=== PATIENT | female | born 1950 | race Caucasian/White ===

== ENCOUNTER → 2017-02-04 | Outpatient (CLI) | payer MEDICARE, OTHER | END | disposition home or self-care (01) | LOC: HKI 09:41 | PROVIDERS: ATTEND Orthopaedic Surgery | DX: M25.561 Pain in right knee (principal); I10 Essential (primary) hypertension; E78.00 Pure hypercholesterolemia, unspecified; M19.90 Unspecified osteoarthritis, unspecified site; E05.00 Thyrotoxicosis with diffuse goiter without thyrotoxic crisis or storm; Z87.11 Personal history of peptic ulcer disease; Z79.82 Long term (current) use of aspirin ==

== ENCOUNTER → 2017-03-11 | Outpatient (CLI) | payer MEDICARE, OTHER ==
--- NOTE | 2017-03-12 10:58 | RADRPT ---
PROCEDURE: RIGHT knee x-ray, 4 views CLINICAL INDICATION: PAIN TECHNIQUE: AP, weightbearing AP, lateral, and sunrise views of the knee were obtained. COMPARISON: None FINDINGS: No acute fracture or dislocation is seen. There is normal mineralization. There are severe degenerative changes of the medial compartment including joint space narrowing and osteophytes. There are moderate degenerative changes of the lateral and patellofemoral compartments including joint space narrowing and osteophytes. There is no joint effusion. There is no significant soft tissue swelling. IMPRESSION: Moderate to severe degenerative changes of the medial greater than lateral and patellofemoral compar tments. RPTAT: EE Physician Rj Date Time Electronically viewed and signed by Physician Rj on 03/12/2017 08:27 /
--- NOTE | 2017-03-12 11:34 | RADRPT ---
PROCEDURE: Limited x-ray of both lower extremities. CLINICAL INDICATION: Bilateral leg pain. TECHNIQUE: Single frontal view of both lower extremities was obtained from the hips to the calves. COMPARISON: None. FINDINGS: There are severe degenerative changes of the medial compartment of the right knee including joint sp raudel narrowing and osteophytes. Narrowing and osteophytes of the lateral compartment of the right kne e are also noted. There are moderate to severe degenerative changes of the medial compartment of the left knee includi ng joint space narrowing and small osteophytes. Narrowing and osteophytes of the lateral compartmen t of the left knee are also noted. There is decreased osseous mineralization. Soft tissue structures are unremarkable. IMPRESSION: Moderate to severe degenerative changes of the right greater than left knee joint. Decreased osseous mineralization. RPTAT: QQ Physician Rj Date Time Electronically viewed and signed by Physician Rj on 03/12/2017 11:34 /
== END | disposition home or self-care (01) ==
LOC: HKI 10:17
PROVIDERS: ATTEND Orthopaedic Surgery
DX: M25.561 Pain in right knee (principal); M17.11 Unilateral primary osteoarthritis, right knee
CPT/HCPCS: 73564; 77073; G0463

== ENCOUNTER 2017-03-17 11:53 | Inpatient (IN) | payer MEDICARE, OTHER ==
[2017-03-17] VITALS (16 sets, daily range): BP systolic 100–139; BP diastolic 56–71; PULSE 62–91; RESP 14–20; Ht 162.6 cm; Wt 96.6 kg
[~2017-03-17] VITALS: Ht 162.6 cm; Wt 96.6 kg
[~2017-03-17 11:53] MED LIST: BUPIVACAINE LIPOSOME/PF 266 MG/20 ML VIAL INFIL ONE; CEFAZOLIN 2GM/50 ML (PMX) 50 ML X1 BEFORE INCISION IVPB ONE; CELECOXIB 400 MG PO X1 DOSE PO ONE; LACTATED RINGER'S 1,000 ML IV SCH; ONDANSETRON 4 MG IV X 1 DOSE IV ONE; PAIN COCKTAIL-CEFUROXIME IRR ONE; PREGABALIN 300 MG PO X1 PO ONE; SOD CHLORIDE 0.9% IV ONE; TRANEXAMIC ACID 960 MG in SOD CHLORIDE 0.9% 100 ML IVPB ONE; TRANEXAMIC ACID IV ONE; oxyCODONE (CR) 10 MG TAB [oxyCONTIN] X1 DOSE PO ONE; traMADOL 50 MG TAB X 1 DOSE PO ONE
[2017-03-17] MEDS ORDERED: POTA10TA37 PO (13:06)
[2017-03-17] MEDS ORDERED: ATOR10TA65 PO (13:06)
[2017-03-17] MEDS ORDERED: MONT10TA21 PO (13:07)
[2017-03-17] MEDS ORDERED: AMLO2.5T78 PO (13:08)
[2017-03-17] MEDS ORDERED: FLUT16SP17 NASAL (13:09)
[2017-03-17] MEDS ORDERED: LEVO125T71 PO (13:09)
[2017-03-17] MEDS ORDERED: ADV25050 INHALATION (13:11)
[2017-03-17] MEDS ORDERED: ASCO500C7 PO (13:12)
[2017-03-17] MEDS ORDERED: AZEL137S9 NASAL (13:12)
[2017-03-17] MEDS ORDERED: MULTI PO (13:12)
[2017-03-17] MEDS ORDERED: FAMO-95 PO (13:13)
[2017-03-17] MEDS ORDERED: ASPI-664 PO (13:13)
[2017-03-17] MEDS ORDERED: BIOT1CAP3 PO (13:14)
[2017-03-17] MEDS ORDERED: MAGN400T27 PO (13:15)
[2017-03-17] MEDS ORDERED: UBID100C24 PO (13:15)
[2017-03-17] MEDS ORDERED: CHOL100062 PO (13:16)
[2017-03-17] MEDS ORDERED: oxyCODONE (CR) 10 MG TAB [oxyCONTIN] X1 DOSE PO ONE (15:00)
[2017-03-17] MEDS ORDERED: PREGABALIN 300 MG PO X1 PO ONE (15:00)
[2017-03-17] MEDS ORDERED: CEFAZOLIN 2GM/50 ML (PMX) 50 ML X1 BEFORE INCISION IVPB ONE (15:00)
[2017-03-17] MEDS ORDERED: ONDANSETRON 4 MG IV X 1 DOSE IV ONE (15:00)
[2017-03-17] MEDS ORDERED: EXPAREL NOTE (BUPIVICAINE LIPOSOMAL) XX SCH (15:00)
[2017-03-17] MEDS ORDERED: traMADOL 50 MG TAB X 1 DOSE PO ONE (15:00)
[2017-03-17] MEDS ORDERED: CELECOXIB 400 MG PO X1 DOSE PO ONE (15:00)
--- NOTE | 2017-03-17 16:54 | HPN ---
Date/Time of Note Date/Time of Note DATE: 03/17/17 TIME: 16:52 Interval H&P Admission Note Pt. seen H&P reviewed: No system changes No changes from H&P on 03/04/17 by Vamsi Villanueva PA-C except WBC on 03/04/17 was 14.6 and then normalized to 9.7 on 03/10/17 AMARILYS TORO MD Mar 17, 2017 16:54
[2017-03-17] MEDS ORDERED: SODIUM CL BACTERIOSTATIC 30 ML INJ ONE (16:58)
[2017-03-17] MEDS ORDERED: POLYMYXIN B 500000 UNIT INJ ONE (16:58)
[2017-03-17] MEDS ORDERED: VANCOMYCIN 1 GM INJ ONE (16:59)
[2017-03-17] MEDS ORDERED: BACITRACIN 50000 UNITS INJ ONE (17:05)
[2017-03-17] MEDS ORDERED: PROPOFOL 100 ML ONE (17:08)
[2017-03-17] MEDS ORDERED: CEFAZOLIN 1 GM INJ ONE (17:08)
[2017-03-17] MEDS ORDERED: FENTAnyl 50 MCG/ML VIAL ONE (17:08)
[2017-03-17] MEDS ORDERED: MIDAZOLAM 1 MG/ML 2 ML INJ ONE (17:08)
[2017-03-17] MEDS ORDERED: DEXAMETHASONE 4 MG/ML 1 ML INJ ONE (17:09)
[2017-03-17] MEDS ORDERED: METOCLOPRAMIDE 10 MG INJ ONE (17:09)
[2017-03-17] MEDS ORDERED: ONDANSETRON 4 MG INJ IV PRN ×2 (19:30)
[2017-03-17] MEDS ORDERED: HYDROmorphONE 1 MG/ML SYG IV PRN (19:30)
[2017-03-17] MEDS ORDERED: HYDROCODONE/APAP (7.5/325) TAB PO PRN (19:30)
[2017-03-17] MEDS ORDERED: HYDROmorphONE (0.2 MG/ML) 10ML SYG IV PRN ×3 (19:30)
[2017-03-17] MEDS ORDERED: MAGNESIUM HYDROXIDE 30ML CUP PO PRN (19:30)
[2017-03-17] MEDS ORDERED: NACL 0.9% 3 ML SYG IV SCH (19:30)
[2017-03-17] MEDS ORDERED: MEPERIDINE 25 MG INJ IV PRN (19:30)
[2017-03-17] MEDS ORDERED: BISACODYL 10 MG SUPP PR PRN (19:30)
[2017-03-17] MEDS ORDERED: NA PHOSPHATE/BIPHOS 133 ML ENEMA PR PRN (19:30)
[2017-03-17] MEDS ORDERED: ASPIRIN (EC) 325 MG TAB PO ONE (19:30)
[2017-03-17] MEDS ORDERED: DIPHENHYDRAMINE 25 MG CAP PO PRN (19:30)
[2017-03-17] MEDS ORDERED: METOCLOPRAMIDE 10 MG INJ IV PRN (19:30)
[2017-03-17] MEDS ORDERED: DIPHENHYDRAMINE 50 MG INJ IV PRN (19:30)
--- NOTE | 2017-03-17 19:30 | OPR ---
Date/Time of Note Date/Time of Note DATE: 03/17/17 TIME: 19:27 Operative Report Procedure Description DATE: 03/17/2017 PREOPERATIVE DIAGNOSIS: Right knee osteoarthritis POSTOPERATIVE DIAGNOSIS: Right knee osteoarthritis OPERATION PERFORMED: Right total knee arthroplasty. SURGEON: Amarilys Toro MD KENNEL HAND: Eliecer Blackwell PA-C COMPONENTS USED: DePuy Attune size 4 cruciate retaining femoral component, size 3 tibial baseplate, 6 mm polyethylene insert, 32 patellar button ANESTHESIA: Spinal plus general endotracheal intubation, plus periarticular injection ANESTHESIOLOGIST: Candace Nolasco M.D. TOURNIQUET TIME: 51 minutes. ESTIMATED BLOOD LOSS: 50 cc INTRAVENOUS FLUIDS: 2,000 cc SPECIMENS: Bone and soft tissue. DRAINS: Hemovac x1. COMPLICATIONS: None. DISPOSITION: The patient tolerated the procedure well and was taken to the recovery room in stable condition. INDICATIONS: The patient is a 66-year-old woman who has had progressively worsening pain in the right knee with radiographic evidence of severe osteoarthritis. She has failed nonsurgical means of treatment to address her pain including activity modifications pain medications intra-articular injections and ambulatory assist devices. Despite these measures she has had worsening pain and I feel she will benefit from a total knee arthroplasty. The risks, benefits, and alternatives of the procedure were explained in detail to the patient. I explained the risks of the surgery to include but not be limited to, bleeding and possible need for blood transfusion; infection; pain; stiffness; neurovascular injury with possible numbness, weakness, and/or paralysis anywhere from the knee down to the toes; fracture; instability; dislocation; wear and/or loosening of the prosthesis and possible need for future revision; blood clots; pulmonary embolism; and anesthetic complications such as heart attack, stroke, GI bleed, pneumonia, and/or . Ample time was allowed for the patient to ask questions, all of which were addressed and answered. The patient understood the risks involved and wished to proceed. Informed consent was signed prior to the procedure. PROCEDURE: The patient's right knee was initialed with a marking pen in the preoperative area to identify the correct operative site. The patient was brought to the operating room and transferred from the [facility] to the operating table where a spinal anesthetic was administered. The patient was then anesthetized and intubated. A Simon catheter was placed. A timeout was performed to confirm that the right leg was the correct operative site. The patient was given 2 g of Ancef within one hour prior to the procedure. A tourniquet was placed on the operative proximal thigh. The operative knee and lower extremity were prepped and draped in the usual sterile fashion. The operative lower extremity was elevated and exsanguinated with an Esmarch tourniquet. The proximal thigh tourniquet was inflated to 300 mmHg. The knee was flexed. A midline incision was made and carried down through the subcutaneous tissue and fat with sharp dissection. Limited medial and lateral flaps were raised. A medial parapatellar approach was performed. Synovial fluid was normal in color and consistency. The patella was everted and the knee flexed. There were severe tricompartmental osteoarthritic changes noted. A medial release was performed at the joint line to the midcoronal plane. The ACL and remnants of the menisci were excised. The PCL was intact. The stepped drill was used to open up the femoral canal which was irrigated and sucked dry. The intramedullary guide viviane was passed up the femur, and the distal cutting block was pinned into place for a 6 degree valgus cut, taking 10 mm of bone off distally. The oscillating saw was used to make the cut. The tibia was subluxed anteriorly. The tibial cutoff jig was placed over the center of the talus distally and over the junction of the medial and middle third of the tibial tubercle proximally. The guide was pinned into place and the oscillating saw was used to make the cut. The tibia was sized. The extension gap was checked and accommodated a 6 mm spacer block with the knee in full extension. There was no varus or valgus instability. At this point, the femur was sized with the posterior referencing guide. Two holes were drilled in 3 degrees of external rotation. The two holes were in line with the transepicondylar axis, perpendicular to Hyde's line, and in line with the tibial cutoff jig brought up with the knee flexed 90 degrees and tensed with 2 lamina spreaders, suggesting the femoral rotation was correct. The four-in-one cutting block was pinned into place. The anterior and posterior cuts and chamfer cuts were made with the oscillating saw. The flexion gap was checked and accommodated the 6 mm spacer block at 90 degrees. There was no varus or valgus instability, suggesting the flexion and extension gaps were now equal. The central sulcus was cut out on the femur. The tibia was drilled and punched in proper rotation. Trial components were placed into position with a trial insert. The patella was cut down to 13 mm and sized. Three holes were drilled and the trial button placed in position. With all the trials now in place, the knee was taken through range of motion and came to full extension as evidenced by the fact that with the foot on my abdomen and axial loading, there was no tendency for the knee to flex. The knee was able to be flexed to 125 degrees with good patellar tracking with no lateral tilt or subluxation. At this point, I was satisfied with the overall range of motion, stability, and patellar tracking. The trials were removed. The real components were opened. Two bags of cement were mixed, one with and one without premixed antibiotic. The knee was irrigated with antibiotic saline and sucked dry. Once the cement was in a doughy stage, the real components were cemented into place. The knee was held in full extension, and the patellar component was held with a patellar clamp. All excess cement was removed with curettes. As the cement was hardening, the synovial/capsular layer was infiltrated with a mixture of 150 mg of 0.5% Bupivacaine, 8 mg of Duramorph, 300 mcg of epinephrine, 30 mg of Toradol, 100 mcg of clonidine, 750 mg of cefuroxime and 86 mL of normal saline, followed by an injection of 266 mg of liposomal Bupivacaine. A Hemovac drain was placed in the deep portion of the wound and brought out the anterolateral thigh. Once the cement was completely hardened, the trial liner was removed, and the real insert was opened. The tourniquet was let down, and there was good hemostasis. The knee was then irrigated with a mixture of betadine/saline and then antibiotic saline with pulsatile lavage. The real insert was impacted into the tibia and reduced onto to the femur. The arthrotomy was closed with a few interrupted #1 Ethibond in a figure-of- eight fashion, and then closed in a watertight fashion with a running #2 Stratafix suture. Knee flexion was checked against gravity and came to 125 degrees. The subcutaneous layer was irrigated and closed with 2-0 Statafix, and then 3-0 Vicryl and then shaka on the skin. The wound was covered with an occlusive dressing, and secured with cast padding and a bias dressing. The drain was secured with 3-0 nylon. The sponge and needle counts were correct at the end of the case. The patient was then awakened, extubated, and taken to the recovery room in stable condition. AMARILYS TORO MD Mar 17, 2017 19:30
--- NOTE | 2017-03-17 19:32 | PN ---
Date/Time of Note Date/Time of Note DATE: 03/17/17 TIME: 19:30 Assessment/Plan Lines/Catheters IV Catheter Type (from Nrsg): Peripheral IV Assessment/Plan Assessment/Plan Stable in PACU, s/p right TKA -continue Ancef until drains removed -pain meds as needed -ASA/SCDs -OOB with PT -check AM labs -monitor drain -d/c thornton in AM XR of the right knee is pending at this time Subjective 24 Hr Interval Summary Stable in PACU. Drowsy from anesthesia. Denies pain. Moving all extremities. Exam/Review of Systems Vital Signs Vitals Vital Signs Date Time Temp Pulse Resp B/P Pulse Ox O2 Delivery O2 Flow Rate FiO2 03/17/17 19:21 98.4 03/17/17 14:35 91 18 139/71 95 Exam Free Text/Dictation Hemovac: minimal Dressing dry Incision clean, dry, and intact without redness or drainage Thigh soft 5/5 Quadriceps, Tibialis Anterior, EHL, Gastroc, Soleus, Peroneals Normal sensation Palpable DT/PT, CR <2 sec No distal edema WHITLEY CHERY PA-C Mar 17, 2017 19:31
[2017-03-17 19:50] LABS: HEMATOCRIT 39.1 % (37.0-47.0); HEMOGLOBIN 12.7 g/dl (12.0-16.0)
[2017-03-17] MEDS: CEFAZOLIN 2 GM/50 ML (PMX) 50 ML IVPB SCH (20:06)
[2017-03-17 20:11] LABS: CALCIUM 8.9 mg/dl (8.4-10.2); CREATININE 0.9 mg/dl (0.44-1.00); POTASSIUM 4.3 mmol/L (3.5-5.1)
[2017-03-17] MEDS: ATORVASTATIN 10 MG TAB PO SCH (21:24)
[2017-03-17] MEDS: MONTELUKAST 10 MG TAB PO SCH (21:24)
[2017-03-17] MEDS: PREGABALIN 50 MG CAP PO SCH (21:24)
[2017-03-17] MEDS: DOCUSATE SODIUM 100 MG CAP PO SCH (21:24)
[2017-03-17] MEDS: FAMOTIDINE 20 MG TAB PO SCH (21:24)
[2017-03-17] MEDS: LACTATED RINGER'S 1,000 ML IV SCH (21:27)
[2017-03-17] MEDS ORDERED: SOD CHLORIDE 0.9% IVPB ONE (22:30)
[2017-03-17] MEDS ORDERED: TRANEXAMIC ACID IVPB ONE (22:30)
--- NOTE | 2017-03-17 22:32 | RADRPT ---
PROCEDURE: XR Knee. CLINICAL INDICATION: 66 years of age, female. Postop. TECHNIQUE: 2 views of the left knee. COMPARISON: March 11, 2017 FINDINGS: In the interval there has been a cemented right total knee replacement that has the expected immedia te postoperative appearance. There is a a surgical drain in the anterior joint. There are anterior skin shaka. Soft tissue swelling and soft tissue gas are in keeping with recent surgery. IMPRESSION: Status post right total knee replacement with the expected immediate postoperative appearance. RPTAT: HCTS Physician Maximo Date Time Electronically viewed and signed by Physician Mxaimo on 03/17/2017 22:32 CS/
[2017-03-18] MEDS: traMADol 50 MG TAB PO SCH ×4 (00:44→18:16)
[2017-03-18] MEDS ORDERED: TRANEXAMIC ACID IVPB ONE (01:30)
[2017-03-18] MEDS ORDERED: SOD CHLORIDE 0.9% IVPB ONE (01:30)
[2017-03-18] MEDS ORDERED: CEFAZOLIN 2 GM/50 ML (PMX) 50 ML IVPB SCH (02:00)
[2017-03-18] MEDS: LACTATED RINGER'S 1,000 ML IV SCH ×5 (03:24→19:24)
[2017-03-18] MEDS: LEVOTHYROXINE 125 MCG TAB PO SCH (05:07)
[2017-03-18] MEDS: PANTOPRAZOLE (EC) 40 MG TAB PO SCH ×2 (05:07→18:16)
[2017-03-18] MEDS: CEFAZOLIN 2 GM/50 ML (PMX) 50 ML IVPB SCH ×2 (05:07→12:21)
[2017-03-18 05:25] LABS: HEMATOCRIT 39.3 % (37.0-47.0); HEMOGLOBIN 12.7 g/dl (12.0-16.0)
[2017-03-18 06:26] LABS: ADD UMIC YES; UR ASCORBIC ACID 40 mg/dL (NEGATIVE); UR BILIRUBIN (Dip) NEGATIVE (NEGATIVE); UR BLOOD (Dip) 1+ mg/dL (NEGATIVE); UR CLARITY CLEAR (CLEAR); UR COLOR YELLOW (YELLOW); UR GLUCOSE (Dip) NEGATIVE (NEGATIVE); UR KETONES (Dip) TRACE mg/dL (NEGATIVE); UR LEUKOCYTE ESTERASE (Dip) 1+ Leu/ul (NEGATIVE); UR NITRITE (Dip) NEGATIVE (NEGATIVE); UR RBC 56 /HPF (0-5); UR SPECIFIC GRAVITY (Dip) 1.019 (1.003-1.030); UR TOTAL PROTEIN (Dip) NEGATIVE (NEGATIVE); UR UROBILINOGEN (Dip) NEGATIVE (NEGATIVE)
[2017-03-18 06:42] LABS: CALCIUM 8.5 mg/dl (8.4-10.2); CREATININE 0.84 mg/dl (0.44-1.00); POTASSIUM 4.2 mmol/L (3.5-5.1)
[2017-03-18 07:00] VITALS: BP 118/56; RESP 18
--- NOTE | 2017-03-18 07:30 | PDOCDIS ---
Discharge Instructions DIAGNOSIS Discharge Diagnosis s/p right TKA CONDITION Patient Condition: Good HOME CARE INSTRUCTIONS: Diet Instructions: Regular ACTIVITY: Activity Restrictions: Slowly Increase Activity Rest between Activity Avoid heavy lifting Do not operate Machinery Do not operate Power Tool Avoid Heavy Housework Keep Limb Elevated Weight Bearing Bathing Restrictions: Shower FOLLOW UP/APPOINTMENTS Follow-up Plan follow up in the office on 03/27/17 OTHER ORDERS: Other Orders: S/P TKA Physical Therapy: Three times per week at home x 2 weeks Daily in Rehab/SNF WB STATUS: WBAT 1. Strengthening exercises for both upper and un-operated lower extremities. 2. Gait training with front wheeled walker 3. Active range of motion exercises to operative knee. 4. When not working on knee range of motion exercises, distal towel roll under operative ankle/distal calf to promote full extension. 5. DO NOT PUT ANYTHING BEHIND OPERATIVE KNEE!!! 6. Quadriceps and hamstring strengthening. 7. May switch to cane in contra lateral hand 6 weeks after surgery. 8. Physical Therapy can open case if nursing is not available. 9. Use Ice Machine as instructed from date of surgery while at rest 3X/day. 10. Patient requires mobile SCDs to reduce risk of developing DVT following TKA. Patient will use the mobile SCDs for 30 days postoperatively. Bathing assistance by home health aide twice weekly if Medicare patient. Occupational Therapy: Evaluation for assistive devices and ADL training. Wound Care: Keep incision dry & covered with Tegaderm until first visit with Dr. Cabral Anticoagulation Orders: Enteric Coated Aspirin 325 mg po bid x 6 weeks from date of surgery Follow-up:Call for an appointment with Dr. Cabral in 1 week after discharged from hospital at DME Orders: FWW, 3-in-1 Commode, Polar ice machine, Mobile SCDs WHITLEY CHERY PA-C Mar 18, 2017 07:30
[2017-03-18] MEDS ORDERED: TRAM50TA2 PO (07:31)
[2017-03-18] MEDS ORDERED: PANT40TA4 PO (07:31)
[2017-03-18] MEDS ORDERED: HYDR-3605 PO (07:31)
[2017-03-18] MEDS ORDERED: PREG50CA PO (07:31)
[2017-03-18] MEDS ORDERED: ASPI325T32 PO (07:31)
--- NOTE | 2017-03-18 08:51 | PN ---
Date/Time of Note Date/Time of Note DATE: 03/18/17 TIME: 08:50 Assessment/Plan Lines/Catheters IV Catheter Type (from Nrsg): Peripheral IV Simon in Place (from Nrsg): Yes Assessment/Plan Assessment/Plan Stable POD #1, s/p right TKA -d/c Ancef -pain meds as needed -ASA/SCDs -OOB with PT -drain removed -check AM labs -d/c planning for home Subjective 24 Hr Interval Summary No acute overnight events. Denies significant pain. Did not start therapy yet. VSS, afebrile. Would like to go home upon discharge. Exam/Review of Systems Vital Signs Vitals Vital Signs Date Time Temp Pulse Resp B/P Pulse Ox O2 Delivery O2 Flow Rate FiO2 03/18/17 07:00 97.4 57 18 118/56 97 03/17/17 23:00 Nasal Cannula 03/17/17 19:41 8.0 Intake and Output 03/17/17 03/17/17 03/18/17 15:00 23:00 07:00 Intake Total 2000 ml 1269.4 ml Output Total 280 ml 100 ml Balance 1720 ml 1169.4 ml Exam Free Text/Dictation Hemovac: 130cc Dressing dry Incision clean, dry, and intact without redness or drainage Thigh soft 5/5 Quadriceps, Tibialis Anterior, EHL, Gastroc, Soleus, Peroneals Normal sensation Palpable DT/PT, CR <2 sec No distal edema Results Result Diagram: 03/18/17 0428 03/18/17 0428 WHITLEY CHERY PA-C Mar 18, 2017 08:51
[2017-03-18] MEDS: DOCUSATE SODIUM 100 MG CAP PO SCH ×2 (09:06→20:45)
[2017-03-18] MEDS: ASPIRIN (EC) 325 MG TAB PO SCH ×2 (09:07→20:45)
[2017-03-18] MEDS: ASCORBIC ACID 500 MG TAB PO SCH (09:07)
[2017-03-18] MEDS: HYDROCODONE/APAP (7.5/325) TAB PO PRN ×2 (09:15→20:56)
[2017-03-18] MEDS: PREGABALIN 50 MG CAP PO SCH ×2 (09:15→20:45)
[2017-03-18 14:00] VITALS: BP 118/67; RESP 18
[2017-03-18 20:20] VITALS: BP 143/70; RESP 20
[2017-03-18] MEDS: FAMOTIDINE 20 MG TAB PO SCH (20:45)
[2017-03-18] MEDS: ATORVASTATIN 10 MG TAB PO SCH (20:45)
[2017-03-18] MEDS: MONTELUKAST 10 MG TAB PO SCH (20:46)
[2017-03-19] MEDS: HYDROCODONE/APAP (7.5/325) TAB PO PRN (01:46)
[2017-03-19] MEDS: LACTATED RINGER'S 1,000 ML IV SCH ×3 (01:48→19:24)
[2017-03-19 02:00] VITALS: BP 137/73; RESP 18
[2017-03-19] MEDS: LEVOTHYROXINE 125 MCG TAB PO SCH (05:09)
[2017-03-19] MEDS: PANTOPRAZOLE (EC) 40 MG TAB PO SCH ×2 (05:09→18:07)
[2017-03-19] MEDS: traMADol 50 MG TAB PO SCH ×5 (05:10→23:48)
[2017-03-19 05:29] LABS: HEMATOCRIT 35.4 % (37.0-47.0); HEMOGLOBIN 11.3 g/dl (12.0-16.0)
[2017-03-19 06:05] LABS: CALCIUM 8.5 mg/dl (8.4-10.2); CREATININE 0.89 mg/dl (0.44-1.00); POTASSIUM 4.2 mmol/L (3.5-5.1)
[2017-03-19 07:34] VITALS: BP 113/59; RESP 19
[2017-03-19] MEDS: ASCORBIC ACID 500 MG TAB PO SCH (09:06)
[2017-03-19] MEDS: DOCUSATE SODIUM 100 MG CAP PO SCH ×2 (09:06→20:48)
[2017-03-19] MEDS: PREGABALIN 50 MG CAP PO SCH ×2 (09:06→20:48)
[2017-03-19] MEDS: ASPIRIN (EC) 325 MG TAB PO SCH ×2 (09:06→20:48)
[2017-03-19] MEDS: ACETAMINOPHEN 325 MG TAB PO PRN ×2 (12:20→19:57)
[2017-03-19 14:30] VITALS: BP 118/63; RESP 18
--- NOTE | 2017-03-19 14:37 | PN ---
Date/Time of Note Date/Time of Note DATE: 03/18/17 TIME: 15:35 A 66 yaer female s/p riht knee replacement POD #1 is doing fine. no Pain, N/V, itching, headache, bCK PAIN. CARE PER SURGERY Assessment/Plan VTE Prophylaxis VTE Prophylaxis Intervention: ambulation Lines/Catheters IV Catheter Type (from Nrs): Saline Lock Urinary Cath still in place: Yes Exam/Review of Systems Vital Signs Vitals Vital Signs Date Time Temp Pulse Resp B/P Pulse Ox O2 Delivery O2 Flow Rate FiO2 03/19/17 07:34 97.9 73 19 113/59 95 03/18/17 09:00 Nasal Cannula 03/17/17 19:41 8.0 Intake and Output 03/18/17 03/18/17 03/19/17 15:00 23:00 07:00 Intake Total 50 ml 2660 ml 1975 ml Output Total 1500 ml 1400 ml Balance 50 ml 1160 ml 575 ml Results Result Diagram: 03/19/17 0433 03/19/17 0433 Results 24 hrs Laboratory Tests Test 03/19/17 04:33 Hemoglobin 11.3 L Hematocrit 35.4 L Sodium Level 138 Potassium Level 4.2 Chloride Level 106 Carbon Dioxide Level 26 Anion Gap 10 Blood Urea Nitrogen 21 H Creatinine 0.89 Glucose Level 96 # Calcium Level 8.5 Medications Medications Current Medications Miscellaneous Information 1 ea NOTE XX ; Start 03/17/17 at 15:00; Stop 03/21/17 at 14:59 Ascorbic Acid (Vitamin C) 500 mg DAILY PO Last administered on 03/19/17 09:06 ; Admin Dose 500 MG; Start 03/18/17 at 09:00 Atorvastatin Calcium (Lipitor) 10 mg QHS PO Last administered on 03/18/17 20: 45; Admin Dose 10 MG; Start 03/17/17 at 21:00 Famotidine (Pepcid) 20 mg QPM PO Last administered on 03/18/17 20:45; Admin Dose 20 MG; Start 03/17/17 at 21:00 Levothyroxine Sodium (Synthroid) 125 mcg DAILY@06 PO Last administered on 05:09; Admin Dose 125 MCG; Start 03/18/17 at 06:00 Montelukast Sodium 10 mg 10 mg QHS PO Last administered on 03/18/17 20:46; Admin Dose 10 MG; Start 03/17/17 at 21:00 Lactated Ringer's (Lr) 1,000 ml @ 125 mls/hr Q8H IV Last administered on 01:48; Admin Dose 125 MLS/HR; Start 03/17/17 at 19:24 Tramadol HCl (Ultram) 50 mg Q6 PO Last administered on 03/19/17 05:10; Admin Dose 50 MG; Start 03/17/17 at 20:00; Stop 03/20/17 at 19:59 Hydromorphone HCl (Dilaudid) 1 mg Q3H PRN IV PAIN LEVEL 8-10; Start 03/17/17 at 19:30 Ondansetron HCl (Zofran Inj) 4 mg Q6H PRN IV NAUSEA AND/OR VOMITING; Start at 19:30 Bisacodyl (Dulcolax Supp) 10 mg Q12H PRN [place] CONSTIPATION; Start 03/17/17 at 19: 30 Magnesium Hydroxide (Milk Of Mag) 30 ml BID PRN PO CONSTIPATION; Start at 19:30 Sodium Biphosphate/ Sodium Phosphate (Fleet Enema) 133 ml DAILY PRN [place] CONSTIPATION; Start 03/17/17 at 19:30 Docusate Sodium (Colace) 100 mg BID PO Last administered on 03/19/17 09:06; Admin Dose 100 MG; Start 03/17/17 at 21:00 Diphenhydramine HCl (Benadryl) 25 mg Q6H PRN PO PRURITUS; Start 03/17/17 at 19: 30 Acetaminophen/ Hydrocodone Bitart ([place] (7.5-325)) 1 tab Q4H PRN PO PAIN LEVEL 1-3 Last administered on 03/19/17 01:46; Admin Dose 1 TAB; Start at 19:30 Acetaminophen/ Hydrocodone Bitart ([place] (7.5-325)) 2 tab Q4H PRN PO PAIN LEVEL 4-7; Start 03/17/17 at 19:30 Aspirin (Ecotrin) 325 mg BID PO Last administered on 03/19/17 09:06; Admin Dose 325 MG; Start 03/18/17 at 09:00 Pantoprazole (Protonix Tab) 40 mg BID@06,18 PO Last administered on 03/19/17 05:09; Admin Dose 40 MG; Start 03/18/17 at 06:00 Pregabalin (Lyrica) 50 mg BID PO Last administered on 03/19/17 09:06; Admin Dose 50 MG; Start 03/17/17 at 21:00 Acetaminophen (Tylenol Tab) 650 mg Q6H PRN PO PAIN AND OR ELEVATED TEMP Last administered on 03/19/17 12:20; Admin Dose 650 MG; Start 03/19/17 at 11:00 JEFF HUIZAR MD Mar 19, 2017 14:37
--- NOTE | 2017-03-19 16:20 | PN ---
Date/Time of Note Date/Time of Note DATE: 03/19/17 TIME: 16:19 Assessment/Plan Lines/Catheters IV Catheter Type (from Nrsg): Saline Lock Simon in Place (from Nrsg): Yes Assessment/Plan Assessment/Plan Stable, POD #2, s/p right TKA -pain meds (hold off on norco) -ASA/SCDs -OOB with PT -dressing changed -check AM labs -plan to discharge home tomorrow Subjective 24 Hr Interval Summary No acute overnight events. Denies pain. Feeling drowsy from the norco. VSS, afebrile. Will plan to go home tomorrow. Exam/Review of Systems Vital Signs Vitals Vital Signs Date Time Temp Pulse Resp B/P Pulse Ox O2 Delivery O2 Flow Rate FiO2 03/19/17 14:30 97.7 76 18 118/63 98 03/18/17 09:00 Nasal Cannula 03/17/17 19:41 8.0 Intake and Output 03/18/17 03/18/17 03/19/17 15:00 23:00 07:00 Intake Total 50 ml 2660 ml 1975 ml Output Total 1500 ml 1400 ml Balance 50 ml 1160 ml 575 ml Exam Free Text/Dictation Dressing dry Incision clean, dry, and intact without redness or drainage Thigh soft 5/5 Quadriceps, Tibialis Anterior, EHL, Gastroc, Soleus, Peroneals Normal sensation Palpable DT/PT, CR <2 sec No distal edema Results Result Diagram: 03/19/17 0433 03/19/17 0433 WHITLEY CHERY PA-C Mar 19, 2017 16:20
[2017-03-19] MEDS: ATORVASTATIN 10 MG TAB PO SCH (20:48)
[2017-03-19] MEDS: FAMOTIDINE 20 MG TAB PO SCH (20:48)
[2017-03-19] MEDS: MONTELUKAST 10 MG TAB PO SCH (20:48)
[2017-03-19 21:14] VITALS: BP 123/70; RESP 20
[2017-03-19 21:32] VITALS: BP 123/59; RESP 18
[2017-03-20] MEDS: traMADol 50 MG TAB PO SCH ×3 (01:37→11:09)
[2017-03-20 02:43] VITALS: BP 125/62; RESP 18
[2017-03-20] MEDS: LACTATED RINGER'S 1,000 ML IV SCH (03:24)
[2017-03-20 06:00] LABS: HEMATOCRIT 39.8 % (37.0-47.0); HEMOGLOBIN 12.6 g/dl (12.0-16.0)
[2017-03-20] MEDS: LEVOTHYROXINE 125 MCG TAB PO SCH (06:08)
[2017-03-20] MEDS: PANTOPRAZOLE (EC) 40 MG TAB PO SCH (06:08)
[2017-03-20 06:34] LABS: CALCIUM 8.5 mg/dl (8.4-10.2); CREATININE 0.92 mg/dl (0.44-1.00); POTASSIUM 4.4 mmol/L (3.5-5.1)
[2017-03-20 08:33] VITALS: BP 162/74; RESP 18
[2017-03-20] MEDS: ACETAMINOPHEN 325 MG TAB PO PRN (09:01)
[2017-03-20] MEDS: DOCUSATE SODIUM 100 MG CAP PO SCH (09:01)
[2017-03-20] MEDS: ASPIRIN (EC) 325 MG TAB PO SCH (09:01)
[2017-03-20] MEDS: ASCORBIC ACID 500 MG TAB PO SCH (09:01)
[2017-03-20] MEDS: PREGABALIN 50 MG CAP PO SCH (09:01)
--- NOTE | 2017-03-20 09:23 | PN ---
Date/Time of Note Date/Time of Note DATE: 03/20/17 TIME: 09:22 Assessment/Plan Lines/Catheters IV Catheter Type (from Nrsg): Saline Lock Simon in Place (from Nrsg): Yes Assessment/Plan Assessment/Plan Stable, POD #3, s/p right TKA -pain meds as needed -ASA/SCDs -dressing changed -OOB with PT -d/c home today -follow up in the office in 1 week Subjective 24 Hr Interval Summary No acute overnight events. Feeling better overall. Progressing with PT. VSS, afebrile. Will plan to go home today. Exam/Review of Systems Vital Signs Vitals Vital Signs Date Time Temp Pulse Resp B/P Pulse Ox O2 Delivery O2 Flow Rate FiO2 03/20/17 08:33 98.1 90 18 162/74 98 03/18/17 09:00 Nasal Cannula 03/17/17 19:41 8.0 Intake and Output 03/19/17 03/19/17 03/20/17 14:59 22:59 06:59 Intake Total 625 ml 1140 ml 500 ml Output Total 1150 ml Balance 625 ml -10 ml 500 ml Exam Free Text/Dictation Dressing dry Incision clean, dry, and intact without redness or drainage Thigh soft 5/5 Quadriceps, Tibialis Anterior, EHL, Gastroc, Soleus, Peroneals Normal sensation Palpable DT/PT, CR <2 sec No distal edema Results Result Diagram: 03/20/17 0453 03/20/17 0455 WHITLEY CHERY PA-C Mar 20, 2017 09:23
--- NOTE | 2017-03-20 14:42 | DS ---
Date/Time of Note Date/Time of Note DATE: 03/20/17 TIME: 14:39 Discharge Summary Admission/Discharge Info Admit Date/Time Mar 17, 2017 at 12:17 Discharge Date/Time Mar 20, 2017 at 11:25 Discharge Diagnosis Status post right total knee arthroplasty Patient Condition: Good Procedures Right total knee arthroplasty Hospital Course This is a 66-year-old female, who was seen in the clinic initially complaining of right knee pain. X-rays demonstrated advanced osteoarthritis of the right knee, and it was thought she would benefit from right total knee arthroplasty. On 03/17/2017 the patient was admitted and taken to the operating room, where she underwent a right total knee arthroplasty. There were no intraoperative complications. The patient tolerated the procedure well. She was taken to recovery room in stable condition. Pain was well-controlled oral pain medication. She was started on aspirin and SCDs for DVT prophylaxis. She remained hemodynamically stable and neurovascularly intact throughout her hospital stay. She began physical therapy on postoperative day 1, and continues to make a progress. She was deemed stable for discharge home on postoperative day 3. Prior to discharge, the incision was inspected and noted to be clean, dry, and intact. Dressing changes were done prior to the patient going home. Discharge instructions: The patient will be discharged home in stable condition. She is to resume a normal diet. She is weightbearing as tolerated on the right lower extremity. She will begin physical therapy with home health. She will be discharged home with a medication noted, and is to resume all of her normal home medication. The patient is to call the office or go to emergency room for any concerns including increased redness, swelling, drainage , fever, or any concerns regarding the operation or site of incision. Home Meds Active Scripts Pantoprazole* (Pantoprazole*) 40 Mg Tablet.dr, 40 MG PO DAILY for 40 Days, #40 Prov:WHITLEY CHERY PA-C 03/18/17 Tramadol HCl (Tramadol HCl) 50 Mg Tablet, 50 MG PO Q6 for 30 Days, #60 TAB Prov:WHITLEY CHERY PA-C 03/18/17 Hydrocodone/Acetaminophen (Hydrocodon-Acetaminoph 7.5-325) 1 Each Tablet, 2 TAB PO Q4H Y for PAIN LEVEL 4-7 for 30 Days, #60 TAB Prov:WHITLEY CHERY PA-C 03/18/17 Pregabalin* (Lyrica*) 50 Mg Capsule, 50 MG PO BID for 30 Days, #60 CAP Prov:WHITLEY CHERY PA-C 03/18/17 Aspirin (Aspir-Madeleine) 325 Mg Tablet.dr, 325 MG PO BID for 40 Days, #80 Prov:WHITLEY CHERY PA-C 03/18/17 Reported Medications Cholecalciferol* (Vitamin D3*) 1,000 Unit Tablet, 1000 UNIT PO DAILY, TAB 03/17/17 Ubidecarenone (Coq-10) 100 Mg Capsule, 100 MG PO, CAP 03/17/17 Magnesium Oxide* (Mag-Oxide*) 400 Mg Tablet, 400 MG PO DAILY, TAB 03/17/17 Biotin (BIOTIN) 1 Mg Capsule, 1 MG PO, CAP 03/17/17 Famotidine* (Pepcid* AC) 20 Mg Tablet, 20 MG PO QPM, #30 TAB 03/17/17 Ascorbic Acid* (Vitamin C*) 500 Mg Capsule.sa, 500 MG PO DAILY, CAP 03/17/17 Multivitamins* (Theragran*) 1 Tab Tab, 1 TAB PO DAILY, TAB 03/17/17 Azelastine Hcl* (Azelastine Hcl*) 137 Mcg/0.137 Ml [place].pump, 2 SPRAYS NASAL QPM, #1 EA TO EACH NOSTRIL 03/17/17 Salmeterol Xinaf/Fluticasone* (Advair*) 250-50 Diskus Inhaler, 1 INH INHALATION BID, #1 INHALER 03/17/17 Fluticasone Propionate* (Fluticasone Propionate* Nasal) 50 Mcg/[place] - 16 Gm [place].susp, 2 SPRAYS NASAL QAM, #1 BOTTLE TO EACH NOSTRIL 03/17/17 Levothyroxine Sodium* (Levoxyl*) 125 Mcg Tablet, 125 MCG PO BEFORE BREAKFAST, # 30 TAB 03/17/17 Amlodipine Besylate* (Amlodipine Besylate*) 2.5 Mg Tablet, 2.5 MG PO, #30 TAB 03/17/17 Montelukast Sodium* (Singulair*) 10 Mg Tablet, 10 MG PO QHS, #30 TAB 03/17/17 Atorvastatin Calcium (Atorvastatin Calcium) 10 Mg Tablet, 10 MG PO QHS, #30 TAB 03/17/17 Potassium Chloride* (K-Dur*) 10 Meq Tab.prt.sr, 20 MEQ PO QPM, TAB 03/17/17 Discontinued Reported Medications Aspirin (Low Dose Aspirin) 81 Mg Tablet.dr, 81 MG PO DAILY, #30 TAB 03/17/17 Follow-up Plan Follow-up in the office on 03/27/2017 Primary Care Provider Not On Staff Doctor Pending Labs Laboratory Tests Test 03/20/17 04:53 03/20/17 04:55 Hemoglobin 12.6g/dl (12.0-16.0) Hematocrit 39.8% (37.0-47.0) Sodium Level 143mmol/L (135-144) Potassium Level 4.4mmol/L (3.5-5.1) Chloride Level 104mmol/L (97-110) Carbon Dioxide Level 26mmol/L (21-31) Anion Gap 17 (8-16) Blood Urea Nitrogen 22mg/dl (7-20) Creatinine 0.92mg/dl (0.44-1.00) Glucose Level 96mg/dl (70-220) Calcium Level 8.5mg/dl (8.4-10.2) WHITLEY CHERY PA-C Mar 20, 2017 14:42
== END 2017-03-20 11:25 | disposition home health service (06) | DRG 470 ==
LOC: REC 12:17 → MS1 20:45
PROVIDERS: ADMIT Orthopaedic Surgery; ATTEND Orthopaedic Surgery
PROC: 0SRC0J9 Replacement of Right Knee Joint with Synthetic Substitute, Cemented, Open Approach (ICD-10-PCS; principal; 2017-03-17 16:30)
DX: M17.11 Unilateral primary osteoarthritis, right knee (principal); E66.01 Morbid (severe) obesity due to excess calories; N18.3 Chronic kidney disease, stage 3 (moderate); I10 Essential (primary) hypertension; E03.9 Hypothyroidism, unspecified; Z68.36 Body mass index [BMI] 36.0-36.9, adult; E78.5 Hyperlipidemia, unspecified; I12.9 Hypertensive chronic kidney disease with stage 1 through stage 4 chronic kidney disease, or unspecified chronic kidney disease; J45.909 Unspecified asthma, uncomplicated; M47.817 Spondylosis without myelopathy or radiculopathy, lumbosacral region; Z79.82 Long term (current) use of aspirin
CPT/HCPCS: 73560; 80048; 81001; 85014; 85018; 86850; 86900; 86901; 86920; 87081; 87086; 88304; 88311; 97110; 97116; 97163; 97166; 97530; C1776; C9290; J0171; J0690; J0697; J0735; J1100; J1885; J2250; J2274; J2405; J2765; J3010; J3370; J7120

== ENCOUNTER → 2017-03-27 | Outpatient (CLI) | payer MEDICARE, OTHER ==
[~2017-03-27] MED LIST changes: +ADV25050 INHALATION; +AMLO2.5T78 PO; +ASCO500C7 PO; +ASPI325T32 PO; +ATOR10TA65 PO; +AZEL137S9 NASAL; +BIOT1CAP3 PO; -BUPIVACAINE LIPOSOME/PF 266 MG/20 ML VIAL INFIL ONE; -CEFAZOLIN 2GM/50 ML (PMX) 50 ML X1 BEFORE INCISION IVPB ONE; -CELECOXIB 400 MG PO X1 DOSE PO ONE; +CHOL100062 PO; +FAMO-95 PO; +FLUT16SP17 NASAL; +HYDR-3605 PO; -LACTATED RINGER'S 1,000 ML IV SCH; +LEVO125T71 PO; +MAGN400T27 PO; +MONT10TA21 PO; +MULTI PO; -ONDANSETRON 4 MG IV X 1 DOSE IV ONE; -PAIN COCKTAIL-CEFUROXIME IRR ONE; +PANT40TA4 PO; +POTA10TA37 PO; +PREG50CA PO; -PREGABALIN 300 MG PO X1 PO ONE; -SOD CHLORIDE 0.9% IV ONE; +TRAM50TA2 PO; -TRANEXAMIC ACID 960 MG in SOD CHLORIDE 0.9% 100 ML IVPB ONE; -TRANEXAMIC ACID IV ONE; +UBID100C24 PO; -oxyCODONE (CR) 10 MG TAB [oxyCONTIN] X1 DOSE PO ONE; -traMADOL 50 MG TAB X 1 DOSE PO ONE
--- NOTE | 2017-03-27 11:09 | PN ---
Date/Time of Note Date/Time of Note DATE: 03/27/17 TIME: 11:05 Outpatient Progress Note HPI The patient presents today for her first postoperative evaluation. She is 10 days status post right total knee arthroplasty. She is doing well overall. She is still having some nausea from the [place] and tramadol and is using mostly Tylenol for pain. She denies any fevers or chills. She is doing physical therapy with home health. She presents today for her first postoperative evaluation. Physical Exam On exam today, she is alert and oriented 4, and in no acute distress. She is ambulating with a front wheel walker. Exam of the incision demonstrates to be clean, dry, and intact. Shaka are in place. Range of motion is 090. Varus valgus forces are stable. There is no significant soft tissue swelling. Homans sign is negative. Compartments are soft. She is neurovascularly intact distally. Imaging: X-rays of the right knee were obtained today and reviewed by me. They demonstrate good anatomic alignment with no fractures or dislocations identified. Allergies Coded Allergies: No Known Allergies (Verified Allergy, Unknown, 03/17/17) Assessment/Plan Assessment: 10 days status post right total knee arthroplasty Plan: The shaka were removed today, and Steri-Strips were applied. She is to continue doing physical therapy with home health and transition to an outpatient physical therapy program. She is to take aspirin twice daily for DVT prophylaxis. I wrote her prescription of Zofran 4 mg to see if that helps the nausea. She will take Zofran and try the tramadol and [place] to control her pain better. She will follow-up with Dr. Abernathy at [facility] in 4 weeks for repeat evaluation. Medications Home Meds Active Scripts Pantoprazole* (Pantoprazole*) 40 Mg Tablet., 40 MG PO DAILY for 40 Days, #40 Prov:WHITLEY CHERY PA-C 03/18/17 Tramadol HCl (Tramadol HCl) 50 Mg Tablet, 50 MG PO Q6 for 30 Days, #60 TAB Prov:WHITLEY CHERY PA-C 03/18/17 Hydrocodone/Acetaminophen (Hydrocodon-Acetaminoph 7.5-325) 1 Each Tablet, 2 TAB PO Q4H Y for PAIN LEVEL 4-7 for 30 Days, #60 TAB Prov:WHITLEY CHERY PA-C 03/18/17 Pregabalin* (Lyrica*) 50 Mg Capsule, 50 MG PO BID for 30 Days, #60 CAP Prov:WHITLEY CHERY PA-C 03/18/17 Aspirin (Aspir-Madeleine) 325 Mg Tablet.dr, 325 MG PO BID for 40 Days, #80 Prov:WHITLEY CHERY PA-C 03/18/17 Reported Medications Cholecalciferol* (Vitamin D3*) 1,000 Unit Tablet, 1000 UNIT PO DAILY, TAB 03/17/17 Ubidecarenone (Coq-10) 100 Mg Capsule, 100 MG PO, CAP 03/17/17 Magnesium Oxide* (Mag-Oxide*) 400 Mg Tablet, 400 MG PO DAILY, TAB 03/17/17 Biotin (BIOTIN) 1 Mg Capsule, 1 MG PO, CAP 03/17/17 Famotidine* (Pepcid* AC) 20 Mg Tablet, 20 MG PO QPM, #30 TAB 03/17/17 Ascorbic Acid* (Vitamin C*) 500 Mg Capsule.sa, 500 MG PO DAILY, CAP 03/17/17 Multivitamins* (Theragran*) 1 Tab Tab, 1 TAB PO DAILY, TAB 03/17/17 Azelastine Hcl* (Azelastine Hcl*) 137 Mcg/0.137 Ml [place].pump, 2 SPRAYS NASAL QPM, #1 EA TO EACH NOSTRIL 03/17/17 Salmeterol Xinaf/Fluticasone* (Advair*) 250-50 Diskus Inhaler, 1 INH INHALATION BID, #1 INHALER 03/17/17 Fluticasone Propionate* (Fluticasone Propionate* Nasal) 50 Mcg/[place] - 16 Gm [place].susp, 2 SPRAYS NASAL QAM, #1 BOTTLE TO EACH NOSTRIL 03/17/17 Levothyroxine Sodium* (Levoxyl*) 125 Mcg Tablet, 125 MCG PO BEFORE BREAKFAST, # 30 TAB 03/17/17 Amlodipine Besylate* (Amlodipine Besylate*) 2.5 Mg Tablet, 2.5 MG PO, #30 TAB 03/17/17 Montelukast Sodium* (Singulair*) 10 Mg Tablet, 10 MG PO QHS, #30 TAB 03/17/17 Atorvastatin Calcium (Atorvastatin Calcium) 10 Mg Tablet, 10 MG PO QHS, #30 TAB 03/17/17 Potassium Chloride* (K-Dur*) 10 Meq Tab.prt.sr, 20 MEQ PO QPM, TAB 03/17/17 WHITLEY CHERY PA-C Mar 27, 2017 11:09
--- NOTE | 2017-03-27 14:21 | RADRPT ---
PROCEDURE: Right knee radiographs. CLINICAL INDICATION: Right knee pain. Postop. TECHNIQUE: Two views. Frontal and lateral. COMPARISON: 03/11/2017. 03/17/2017. FINDINGS: There is no fracture or dislocation. Anterior skin shaka are once again noted. The surgical drain has been removed. There is a total right knee arthroplasty which appears satisfactory. There is no lytic or blastic lesion. IMPRESSION: 1. Satisfactory postoperative appearance of the right knee. RPTAT: QQ .Wing Gaspar MD, MD Date Time Electronically viewed and signed by .Wing Gaspar MD, on 03/27/2017 14:20 .R/
== END | disposition home or self-care (01) ==
LOC: HKI 10:29
PROVIDERS: ATTEND Orthopaedic Surgery
DX: Z47.1 Aftercare following joint replacement surgery (principal); Z96.651 Presence of right artificial knee joint; M25.561 Pain in right knee